=== PATIENT | female | born 1975 | race Caucasian/White ===

== ENCOUNTER 2023-01-30 08:30 | Outpatient (CLI) | payer OTHER, SELFPAY ==
--- NOTE | 2023-01-30 10:29 | W.ANESCHARGE ---
Anesthesia Charges Start Date/Time Anesthesia Start Date: 01/30/23 Anesthesia Start Time: 09:50 Stop Date/Time Anesthesia Stop Date: 01/30/23 Anesthesia Stop Time: 10:25
--- NOTE | 2023-01-30 10:57 | W.ANESCHARGE ---
Anesthesia Charges Start Date/Time Anesthesia Start Date: 01/30/23 Anesthesia Start Time: 09:50 Stop Date/Time Anesthesia Stop Date: 01/30/23 Anesthesia Stop Time: 10:25
== END 2023-01-30 08:31 | disposition home or self-care (01) ==
LOC: OP CLINIC 08:32
PROVIDERS: PCP Family Medicine; Visit Provider Internal Medicine Gastroenterology
DX: Z12.11 Encounter for screening for malignant neoplasm of colon (principal); K62.1 Rectal polyp; Q43.8 Other specified congenital malformations of intestine
CPT/HCPCS: 45385; 811; 88305; J2704

== ENCOUNTER 2024-06-19 09:40 | Inpatient (IN) | payer BC, SELFPAY ==
[2024-06-19 09:43] VITALS: BP 110/80; PULSE 86; RESP 16; TEMP 36; O2SAT 98; BMI 27.5
--- NOTE | 2024-06-19 10:00 | CRLHL7_ITS ---
For Patients: As a result of the Century Cures Act, medical imaging exams and procedure reports are released immediately into your electronic medical record. You may view this report before your referring provider. If you have questions, please contact your health care provider. INDICATION: CENTRAL ABDOMINAL PAIN, HX MULTIPLE BOWEL OBSTRUCTIONS TECHNIQUE: CT of the abdomen and pelvis was obtained with 81 mL of Isovue 370 intravenous contrast. Please note that all CT scans at this facility use dose modulation, iterative reconstruction, and/or weight-based dosing when appropriate to reduce radiation dose to as low as reasonably achievable. COMPARISON: 06/04/2019 FINDINGS: Lower thorax: Normal. Liver and biliary tree: Likely small hemangioma is again seen in the right liver. Gallbladder: Normal. Spleen: Normal. Pancreas: Normal. Adrenal glands: Normal. Kidneys and ureters: No hydronephrosis. No obstructing renal calculi. Subcentimeter hypoattenuating lesions are too small to characterize and are favored to represent cysts. Gastrointestinal tract: Decompressed distal colon. Moderate stool burden. Status post appendectomy. Dilated and fluid-filled small bowel loops measuring up to 3.5 centimeter (2/74) with transition point likely in the right lower quadrant of the abdomen. The proximal and distal small bowel appear relatively decompressed. Peritoneal cavity: Trace interloop fluid is seen. Bladder: Normal. Pelvic organs: Normal. Vasculature: Normal. Lymph nodes: Normal. Abdominal wall: 2.4 x 1.7 centimeter cystic lesion is seen along the anterolateral right perineum (2/139), which is favored to represent a [place] gland cyst. Musculoskeletal: Normal. IMPRESSION: Dilated and fluid-filled small bowel loops measuring up to 3.5 centimeter with transition point likely in the right lower quadrant of the abdomen. Findings are compatible with small-bowel obstruction. The presence of trace ascites/interloop fluid raises concern for the development of ischemia. Consider surgical consultation. Please note that all CT scans at this facility use dose modulation, iterative reconstruction, and/or weight-based dosing when appropriate to reduce radiation dose to as low as reasonably achievable. Dictated by Yehuda Hinojosa MD @ 06/19/2024 10:48:51 AM (Electronically Signed)
[2024-06-19 10:16] LABS: Basophils Absolute Auto 0.01 K/uL (0.00-0.30); Basophils Percent Auto 0.1 % (0.0-3.0); Eosinophils Absolute Auto 0.01 K/uL (0.00-0.50); Eosinophils Percent Auto 0.1 % (0.0-7.0); Hematocrit 44.8 % (33.0-51.0); Hemoglobin* 14.3 gm/dL (12.0-16.0); Immature Granulocytes Abs Auto 0.01 K/uL (0.00-0.30); Immature Granulocytes Pct Auto 0.1 %; Lymphocytes Percent Auto 10.4 % (20-44); Mean Corpuscular HGB Conc 32 gm/dL (32-36); Mean Corpuscular Hemoglobin 27 pg (26-34); Mean Corpuscular Volume 86 fL (80-100); Monocytes Percent Auto 2.6 % (0.0-11.0); Neutrophils Percent Auto 86.7 % (42.0-72.0); Platelet Count* 295 K/uL (140-440); RDW Coefficient of Variation % 13.6 % (11.5-15.5); Red Blood Count 5.22 m/uL (4.00-5.20); White Blood Count* 8.79 K/uL (4.50-11.00)
[2024-06-19 10:20] LABS: Slide Review Reflex No
[2024-06-19] MEDS: MORPHINE 4 MG/ML INJ IVP ×2 (10:20→22:18)
[2024-06-19] MEDS: ONDANSETRON 2 MG/ML inj 4 MG IVP ×2 (10:20→22:14)
[2024-06-19] MEDS: LACTATED RINGERS 1000 ML 1,000 ML IV (10:20)
--- NOTE | 2024-06-19 10:26 | ED_ITS ---
HPI - Abdominal Pain General Date Seen: 06/19/24 Chief Complaint: Abdominal Pain Stated Complaint: Abdominal pain, nausea, hx of bowel obstruction Time Seen by Provider: 06/19/24 09:41 Source: patient Mode of arrival: ambulatory Limitations: no limitations History of Present Illness HPI narrative: Patient is a 48-year-old female presenting to the emergency department for central abdominal pain. Pain started last night about 22:00 and persisted into this morning. She has not been able to eat or drink anything. Have a bowel movement this morning about 03:00. She has had multiple abdominal surgeries before including appendectomy as a child and adhesion removals for bowel obstructions. Most recent was in 2017. States she has had multiple bowel obstructions in the past and she is concerned she has a partial bowel obstruction at this time. States she has had bowel movements with previous partial bowel obstructions. As vomited about 5 times today. States this feels just like her previous bowel obstructions. Denies fevers, chills. Has not been to eat or drink today. Denies chest pain, shortness of breath. Related Data Home Medications ?Medication ?Instructions ?Recorded ?Confirmed sertraline 50 mg tablet 50 mg PO Q24H 08/19/23 06/19/24 Allergies Allergy/AdvReac Type Severity Reaction Status Date / Time milk AdvReac Verified 06/19/24 09:49 Review of Systems Status of ROS Reports: 10 or more systems reviewed and unremarkable except as noted in History and below Exam Narrative: Exam Narrative: Const: Well-nourished, Well-developed, in mild distress Eyes: PERRL, no conjunctival injection, and symmetrical lids HENT: Atraumatic external nose and ears. Moist mucous membranes. Neck: Symmetric, trachea midline, No thyromegaly. CVS: RRR, No murmurs or gallops. Peripheral pulses 2+ and equal in all extremities RESP: Unlabored respiratory effort. Clear to auscultation bilaterally. GI: Diffuse abdominal tenderness worst in the umbilical region, Nondistended, No rebound or guarding. MSK:Extremities w/o deformity, Normal Active ROM Skin: Warm, Dry. No rashes or lesions. Neuro: Normal Muscle tone, No focal neurological deficits. Psych: Awake, Alert, & Oriented x3. Appropriate mood and affect. Const: Vital Signs, click to edit/add: Vital Signs - 24 hr 06/19/24 09:43 Temperature 96.8 F L Pulse Rate [Pulse Oximeter] 86 Respiratory Rate 16 Blood Pressure [Ri ght Upper Arm] 110/80 Pulse Oximetry 98 Oxygen Delivery Me thod Room Air Course Vital Signs Vital signs: Initial Vital Signs Temperature 96.8 F L 06/19/24 09:43 Temperature Source Temporal Artery Scan 06/19/24 09:43 Pulse Rate 86 06/19/24 09:43 Respiratory Rate 16 06/19/24 09:43 Blood Pressure 110/80 06/19/24 09:43 Blood Pressure Mean 90 06/19/24 09:43 Pulse Oximetry 98 06/19/24 09:43 Oxygen Delivery Method Room Air 06/19/24 09:43 Vital Signs Temperature 96.8 F L 06/19/24 09:43 Pulse Rate 86 06/19/24 09:43 Respiratory Rate 16 06/19/24 09:43 Blood Pressure 110/80 06/19/24 09:43 Pulse Oximetry 98 06/19/24 09:43 Oxygen Delivery Method Room Air 06/19/24 09:43 Temperature 96.8 F L 06/19/24 09:43 Pulse Rate 86 06/19/24 09:43 Respiratory Rate 16 06/19/24 09:43 Blood Pressure 110/80 06/19/24 09:43 Pulse Oximetry 98 06/19/24 09:43 Oxygen Delivery Method Room Air 06/19/24 09:43 Medications Administered Medications: Discontinued Medications Generic Name Dose Route Start Last Admin Trade Name Freq PRN Reason Stop Dose Admin Lactated Ringer's 1,000 mls @ 1,000 mls/hr 06/19/24 10:00 06/19/24 10:20 Lactated Ringers 1000 Ml IV 06/19/24 10:59 1,000 mls/hr .Q1H ONE Administration Morphine Sulfate 4 mg 06/19/24 10:00 06/19/24 10:20 Morphine 4 Mg/Ml Inj IVP 06/19/24 10:01 4 mg ONCE ONE Administration Ondansetron HCl 4 mg 06/19/24 10:00 06/19/24 10:20 Ondansetron 2 Mg/Ml Inj IVP 06/19/24 10:01 4 mg ONCE ONE Administration MDM - Abdominal Pain MDM Narrative Medical decision making narrative: Patient is a 48-year-old female presenting to the emergency department for abdominal pain. She is concerned about a bowel obstruction as she has had them multiple times in the past. Has been hospitalized in [place] for them in the past according to the patient. We will do a CT scan of the abdomen pelvis with contrast to better evaluate. Will do CBC, CMP, test. Will give a L f luids for dehydration, morphine for pain and Zofran for nausea. Patient's lab work returned showing no concerning abnormalities. test is negative. CT scan was done and returned showing a small bowel obstruction. There is some concern she could be developing ischemia. I spoke to the radiologist his states this would likely be from pressure on the bowel wall and not mesenteric ischemia. Lactate was ordered and was normal. Her pain is much better at this time and appears much more comfortable. Considering the clinical exam and normal lactate I do not believe a CTA is necessary. I spoke to Dr. Sánchez reason me based on my clinical exam. Patient is accepted to the hospitalist service. Patient is agreeable to this plan. Lab Data Labs: Lab Results 06/19/24 06/19/24 06/19/24 Range/Units 10:00 10:54 11:02 WBC 8.79 (4.50-11.00) K/uL RBC 5.22 H (4.00-5.20) m/uL Hgb 14.3 (12.0-16.0) gm/dL Hct 44.8 (33.0-51.0) % MCV 86 (80-100) fL MCH 27 (26-34) pg MCHC 32 (32-36) gm/dL RDW Coeff of Ottoniel 13.6 (11.5-15.5) % Plt Count 295 (140-440) K/uL Neut % (Auto) 86.7 H (42.0-72.0) % Lymph % (Auto) 10.4 L (20-44) % Barber % (Auto) 2.6 (0.0-11.0) % Eos % (Auto) 0.1 (0.0-7.0) % Baso % (Auto) 0.1 (0.0-3.0) % Neut # (Auto) 7.60 H (1.7-7.0) K/uL Lymph # (Auto) 0.90 (0.90-2.90) K/uL Barber # (Auto) 0.20 (0.00-0.90) K/UL Eos # (Auto) 0.01 (0.00-0.50) K/uL Baso # (Auto) 0.01 (0.00-0.30) K/uL Abs Immat Gran (auto) 0.01 (0.00-0.30) K/uL Imm/Tot Granulo (auto) 0.1 % Sodium 140 (135-149) mmol/L Potassium 3.7 (3.6-5.1) mmol/L Chloride 103 (96-114) mmol/L Carbon Dioxide 30 (20-32) mmol/L Anion Gap 7 (7-15) mEq/L BUN 8 (5-24) mg/dL Creatinine 0.8 (0.5-1.5) mg/dL Estimated Creat Clear 79.07 Estimated GFR 92 ml/min Glucose 148 H (60-115) mg/dL Lactate 1.4 (0.5-1.9) mmol/L Calcium 10.6 (8.4-10.6) mg/dL Total Bilirubin 0.5 (0.1-1.5) mg/dL AST 14 (12-35) U/L ALT 13 (4-35) U/L Alkaline Phosphatase 53 (40-150) U/L Total Protein 7.9 (6.0-8.3) g/dL Albumin 4.8 (3.3-5.0) g/dL HCG, Qual Negative (Negative) Lab Acknowledgement Test Added Imaging Data CT scan abdomen pelvis: Attestation: I have reviewed the pertinent imaging results. Radiologist's impression: Dilated and fluid-filled small bowel loops measuring up to 3.5 centimeter with transition point likely in the right lower quadrant of the abdomen. Findings are compatible with small-bowel obstruction. The presence of trace ascites/interloop fluid raises concern for the development of ischemia. Consider surgical consultation. Please note that all CT scans at this facility use dose modulation, iterative reconstruction, and/or weight-based dosing when appropriate to reduce radiation dose to as low as reasonably achievable. Dictated by Yehuda Hinojosa MD @ 06/19/2024 10:48:51 AM Discharge Plan Discharge Clinical Impression: Small bowel obstruction Patient Disposition: Admitted As Observation Condition: Improved Prescriptions: No Action sertraline 50 mg tablet 50 mg PO Q24H Follow Up/Referrals: Marilia Ross MD [Primary Care Provider] -
[2024-06-19 10:39] LABS: Albumin* 4.8 g/dL (3.3-5.0); Chloride* 103 mmol/L (96-114)
[2024-06-19 10:40] LABS: HCG Qualitative Serum* Negative (Negative); Potassium* 3.7 mmol/L (3.6-5.1); Sodium* 140 mmol/L (135-149)
[2024-06-19 10:42] LABS: Anion Gap 7 mEq/L (7-15); Aspartate Amino Transferase* 14 U/L (12-35); Bilirubin Total* 0.5 mg/dL (0.1-1.5); Carbon Dioxide* 30 mmol/L (20-32); Creatinine* 0.8 mg/dL (0.5-1.5); Est. Creatinine Clearance* 79.07; Estimated Glomerular Filt Rate 92 ml/min; Total Protein* 7.9 g/dL (6.0-8.3)
[2024-06-19 10:43] LABS: Alanine Aminotransferase* 13 U/L (4-35); Alkaline Phosphatase* 53 U/L (40-150); Blood Urea Nitrogen* 8 mg/dL (5-24); Calcium* 10.6 mg/dL (8.4-10.6); Glucose* 148 mg/dL (60-115)
[2024-06-19 11:07] LABS: Lactate* 1.4 mmol/L (0.5-1.9)
--- NOTE | 2024-06-19 11:48 | P.IMHP_ITS ---
Hospitalist- H&P: HPI History of Present Illness Date Seen: 06/19/24 Chief complaint: Abdominal pain, nausea, hx of bowel obstruction Narrative: Monika James is a 48 year old female past medical history significant for MDD, s/p appendectomy, hernia repair, previous small-bowel obstructions, s/p laparotomy, colon polyp is admitted to the medical floor for further management acute, recurrent small-bowel obstruction. Patient reports onset of abdominal pain last evening around 22:00 which has persisted into this morning. Unable to tolerate orals, including solids or liquids. Last bowel movement around 3:00 a.m.. Has vomited approximately 5 times today. Reports this is similar to her previous small-bowel obstructions. Has had laparotomies in the past for adhesions, most recent in 2017. Denies recent fevers or chills. Denies chest pain or shortness of breath. In the ED, CT confirm small bowel obstruction. Concern for possible ischemia, ED provider discussed with Radiology, likely related to swelling rather than of vascular nature. No CTA recommended at this time. Labs essentially unremarkable. Lactate within normal limits. Patient received IV Zofran and morphine with improvement in pain and nausea. No further vomiting. ED provider discussed with general surgery, Dr. Sánchez. Plan for admission. No NGT at this time. Patient is a nonsmoker. Occasional alcohol use. Review of Systems Narrative: REVIEW OF SYSTEMS: Complete review of systems performed and negative unless otherwise stated in HPI or below. [facility] Medical History (Updated 06/19/24 @ 13:22 by Lizet Barcenas PA-C) H/O small bowel obstruction ?Z87.19 - Personal history of other diseases of the digestive system (ICD-10) Colon polyp ?K63.5 - Polyp of colon (ICD-10) Surgical History (Updated 06/19/24 @ 12:36 by Lizet Barcenas PA-C) History of laparotomy ?Z98.890 - Other specified postprocedural states (ICD-10) H/O hernia repair ?Z98.890 - Other specified postprocedural states (ICD-10) ?Z87.19 - Personal history of other diseases of the digestive system (ICD-10) History of appendectomy ?Z90.49 - Acquired absence of other specified parts of digestive tract (ICD- 10) Social History What is your current living situation?: I presently have a place to live Problems where you live: no known problems Problems where you live details: None In the past 12 months, utilities in danger of being shut off: no In past 12 months, lack of transportation kept you from medical appts, meetings, work, or getting things needed for daily living: no In the past 12 mos, have been you worried that your food would run out before you had money to buy more?: never true In the past 12 mos, the food you bought just didn't last and you didn't have money to buy more?: never true Non-prescribed substance use: denies use Caffeine: Yes (daily tea) How often does anyone, including family, friends and others, physically hurt you : never How often does anyone, including family, friends and others, insult or talk down to you: never How often does anyone, including family, friends and others, threaten you with harm: never How often does anyone, including family, friends and others, scream or curse at you: never Meds Home Medications and Allergies Home Medications ?Medication ?Instructions ?Recorded ?Confirmed ?Type sertraline 50 mg tablet 50 mg PO Q24H 08/19/23 06/19/24 History Allergies Allergy/AdvReac Type Severity Reaction Status Date / Time milk AdvReac Verified 06/19/24 09:49 Exam Narrative: Exam Narrative: PHYSICAL EXAM General: Pleasant, conversant, NAD HEENT: Normocephalic, atraumatic, sclera white, EOMI, oral mucosa moist Cardiovascular: RRR, S1S2. No pitting edema Pulmonary: CTA bilaterally without rhonchi, rales, expiratory wheezes. No dyspnea Abdominal: Soft, nondistended, mild tenderness greater right upper quadrant Neurological: Alert, answering questions appropriately, cranial nerves intact, no focal findings Extremities: No gross joint deformity or swelling. AROMI. Neurovascularly intact Skin: Warm, dry. Const: Vital Signs, click to edit/add: Vital Signs - 24 hr 06/19/24 09:43 Temperature 96.8 F L Pulse Rate [Pulse Oximeter] 86 Respiratory Rate 16 Blood Pressure [Ri ght Upper Arm] 110/80 Pulse Oximetry 98 Oxygen Delivery Me thod Room Air Hospitalist - H&P: Result Labs Labs: Short CBC 06/19/24 Range/Units 10:00 WBC 8.79 (4.50-11.00) K/uL Hgb 14.3 (12.0-16.0) gm/dL Hct 44.8 (33.0-51.0) % Plt Count 295 (140-440) K/uL BMP 06/19/24 10:00 Sodium 140 Potassium 3.7 Chloride 103 Carbon Dioxide 30 BUN 8 Creatinine 0.8 Glucose 148 H Calcium 10.6 Liver Function 06/19/24 Range/Units 10:00 Total Bilirubin 0.5 (0.1-1.5) mg/dL AST 14 (12-35) U/L ALT 13 (4-35) U/L Alkaline Phosphatase 53 (40-150) U/L Albumin 4.8 (3.3-5.0) g/dL Imaging CT scan - abdomen: Attestation: I have reviewed the pertinent imaging results. Radiologist's impression: CT of the abdomen and pelvis was obtained with 81 mL of Isovue 370 intravenous contrast. Please note that all CT scans at this facility use dose modulation, iterative reconstruction, and/or weight-based dosing when appropriate to reduce radiation dose to as low as reasonably achievable. COMPARISON: 06/04/2019 FINDINGS: Lower thorax: Normal. Liver and biliary tree: Likely small hemangioma is again seen in the right liver. Gallbladder: Normal. Spleen: Normal. Pancreas: Normal. Adrenal glands: Normal. Kidneys and ureters: No hydronephrosis. No obstructing renal calculi. Subcentimeter hypoattenuating lesions are too small to characterize and are favored to represent cysts. Gastrointestinal tract: Decompressed distal colon. Moderate stool burden. Status post appendectomy. Dilated and fluid-filled small bowel loops measuring up to 3.5 centimeter (2/74) with transition point likely in the right lower quadrant of the abdomen. The proximal and distal small bowel appear relatively decompressed. Peritoneal cavity: Trace interloop fluid is seen. Bladder: Normal. Pelvic organs: Normal. Vasculature: Normal. Lymph nodes: Normal. Abdominal wall: 2.4 x 1.7 centimeter cystic lesion is seen along the anterolateral right perineum (2/139), which is favored to represent a [place] gland cyst. Musculoskeletal: Normal. IMPRESSION: Dilated and fluid-filled small bowel loops measuring up to 3.5 centimeter with transition point likely in the right lower quadrant of the abdomen. Findings are compatible with small-bowel obstruction. The presence of trace ascites/interloop fluid raises concern for the development of ischemia. Consider surgical consultation. Assessment and Plan Assessment and plan (1) Small bowel obstruction: Problem comment: Acute, recurrent, history of same. S/p multiple abdominal surgeries CT shows dilated and fluid-filled small bowel loops measuring up to 3.5 centimeter with transition point likely in the right lower quadrant of the abdomen. Findings are compatible with small-bowel obstruction. The presence of trace ascites/interloop fluid raises concern for the development of ischemia. ED provider discussed with Radiology, ischemia thought to be more likely r/t swelling rather than vascular in nature General Surgery consult, Dr. Sánchez, recommendations as follows No NGT for now NPO, IVF Pain and nausea management Gastrografin challenge Status: Acute (2) MDD (major depressive disorder): Problem comment: Continue Sertraline Status: Chronic Total Time Spent Total Time Spent: Total time spent caring for the patient today was 60 minutes. This includes time spent for the visit reviewing the chart, time spent during the visit, time spent after the visit and documentation and planning in coordination of care.
--- NOTE | 2024-06-19 12:18 | PM.GSCN ---
History of Present Illness Consult details Date Seen: 06/19/24 Consult date: 06/20/24 Narrative: The patient is a 48-year-old female who presented to the emergency department today with abdominal pain. She states that yesterday she developed mid abdominal pain as well as vomiting. She has also had a dry heaves with this. She did have a bowel movements this morning and has been passing a small amount of gas. Her pain has improved since presenting to the hospital. Her history is that she underwent an appendectomy in 1984. She developed a bowel obstruction in 2001 and underwent laparotomy. I believe this was at [facility]. This was done in a more urgent fashion. She states that she was treated with an NG tube at that time. She had an incisional hernia repair with mesh in 2012 believes that that may have been at the site of her prior appendectomy. She had a small bowel obstruction requiring hospitalization here in [place] in 2015. Because of ongoing symptoms that sounded like recurring bowel obstructions, she was seen at [facility]. In 2016 underwent laparoscopic exploration and was found to have an internal hernia.. She again had a bowel obstruction in 2019. She was hospitalized again in [place] but this resolved without surgical intervention. Since then she has been doing well. This is her 1st major episode or hospitalizations since. [facility] Medical History (Updated 06/19/24 @ 13:22 by Lizet Barcenas PA-C) H/O small bowel obstruction ?Z87.19 - Personal history of other diseases of the digestive system (ICD-10) Colon polyp ?K63.5 - Polyp of colon (ICD-10) Surgical History (Updated 06/19/24 @ 12:36 by Lizet Barcenas PA-C) History of laparotomy ?Z98.890 - Other specified postprocedural states (ICD-10) H/O hernia repair ?Z98.890 - Other specified postprocedural states (ICD-10) ?Z87.19 - Personal history of other diseases of the digestive system (ICD-10) History of appendectomy ?Z90.49 - Acquired absence of other specified parts of digestive tract (ICD-10) Social History What is your current living situation?: I presently have a place to live Problems where you live: no known problems Problems where you live details: None In the past 12 months, utilities in danger of being shut off: no In past 12 months, lack of transportation kept you from medical appts, meetings, work, or getting things needed for daily living: no In the past 12 mos, have been you worried that your food would run out before you had money to buy more?: never true In the past 12 mos, the food you bought just didn't last and you didn't have money to buy more?: never true Non-prescribed substance use: denies use Caffeine: Yes (daily tea) How often does anyone, including family, friends and others, physically hurt you: never How often does anyone, including family, friends and others, insult or talk down to you: never How often does anyone, including family, friends and others, threaten you with harm: never How often does anyone, including family, friends and others, scream or curse at you: never Meds Home Medications and Allergies Home Medications ?Medication ?Instructions ?Recorded ?Confirmed ?Type sertraline 50 mg tablet 75 mg PO Q24H 08/19/23 06/19/24 History Allergies Allergy/AdvReac Type Severity Reaction Status Date / Time milk AdvReac Verified 06/19/24 09:49 Exam Narrative: Exam Narrative: General appearance: Alert, cooperative, and in no distress Eyes: PERRLA, eye lids clear, and sclera white HENT Head: Normocephalic Ears: External ears normal Pulmonary: Breathing nonlabored on room air Cardiovascular Heart: Regular rate Extremities: warm and well perfused Gastrointestinal Abdominal: Lower midline scar noted. Large right lower quadrant scar noted. No hernias noted. Abdomen is soft and nontender. Nondistended. Musculoskeletal: Extremities: Upper: Both upper extremities have normal joint range of motion and intact strength. Lower: Both lower extremities have normal joint range of motion and intact strength. Skin: Normal skin color, texture, and turgor. Neurologic: No focal deficits Psychiatric: Alert, oriented, cooperative, normal affect. Const: Vital Signs, click to edit/add: Vital Signs - 24 hr 06/19/24 09:43 Temperature 96.8 F L Pulse Rate [Pulse Oximeter] 86 Respiratory Rate 16 Blood Pressure [Ri ght Upper Arm] 110/80 Pulse Oximetry 98 Oxygen Delivery Me thod Room Air Results Labs Labs: Abnormal lab results 06/19/24 Range/Units 10:00 RBC 5.22 H (4.00-5.20) m/uL Neut % (Auto) 86.7 H (42.0-72.0) % Lymph % (Auto) 10.4 L (20-44) % Neut # (Auto) 7.60 H (1.7-7.0) K/uL Glucose 148 H (60-115) mg/dL Diabetes panel 06/19/24 Range/Units 10:00 Sodium 140 (135-149) mmol/L Potassium 3.7 (3.6-5.1) mmol/L Chloride 103 (96-114) mmol/L Carbon Dioxide 30 (20-32) mmol/L BUN 8 (5-24) mg/dL Creatinine 0.8 (0.5-1.5) mg/dL Glucose 148 H (60-115) mg/dL Calcium 10.6 (8.4-10.6) mg/dL AST 14 (12-35) U/L ALT 13 (4-35) U/L Alkaline Phosphatase 53 (40-150) U/L Total Protein 7.9 (6.0-8.3) g/dL Albumin 4.8 (3.3-5.0) g/dL Calcium panel 06/19/24 Range/Units 10:00 Calcium 10.6 (8.4-10.6) mg/dL Albumin 4.8 (3.3-5.0) g/dL Pituitary panel 06/19/24 Range/Units 10:00 Sodium 140 (135-149) mmol/L Potassium 3.7 (3.6-5.1) mmol/L Chloride 103 (96-114) mmol/L Carbon Dioxide 30 (20-32) mmol/L BUN 8 (5-24) mg/dL Creatinine 0.8 (0.5-1.5) mg/dL Glucose 148 H (60-115) mg/dL Calcium 10.6 (8.4-10.6) mg/dL Adrenal panel 06/19/24 Range/Units 10:00 Sodium 140 (135-149) mmol/L Potassium 3.7 (3.6-5.1) mmol/L Chloride 103 (96-114) mmol/L Carbon Dioxide 30 (20-32) mmol/L BUN 8 (5-24) mg/dL Creatinine 0.8 (0.5-1.5) mg/dL Glucose 148 H (60-115) mg/dL Calcium 10.6 (8.4-10.6) mg/dL Total Bilirubin 0.5 (0.1-1.5) mg/dL AST 14 (12-35) U/L ALT 13 (4-35) U/L Alkaline Phosphatase 53 (40-150) U/L Total Protein 7.9 (6.0-8.3) g/dL Albumin 4.8 (3.3-5.0) g/dL All other labs normal. Imaging Abdomen CT scan report/results: report reviewed and image reviewed Additional studies: CT scan the abdomen pelvis 06/19/2024 COMPARISON: 06/04/2019 FINDINGS: Lower thorax: Normal. Liver and biliary tree: Likely small hemangioma is again seen in the right liver. Gallbladder: Normal. Spleen: Normal. Pancreas: Normal. Adrenal glands: Normal. Kidneys and ureters: No hydronephrosis. No obstructing renal calculi. Subcentimeter hypoattenuating lesions are too small to characterize and are favored to represent cysts. Gastrointestinal tract: Decompressed distal colon. Moderate stool burden. Status post appendectomy. Dilated and fluid-filled small bowel loops measuring up to 3.5 centimeter (2/74) with transition point likely in the right lower quadrant of the abdomen. The proximal and distal small bowel appear relatively decompressed. Peritoneal cavity: Trace interloop fluid is seen. Bladder: Normal. Pelvic organs: Normal. Vasculature: Normal. Lymph nodes: Normal. Abdominal wall: 2.4 x 1.7 centimeter cystic lesion is seen along the anterolateral right perineum (2/139), which is favored to represent a Remer gland cyst. Musculoskeletal: Normal. IMPRESSION: Dilated and fluid-filled small bowel loops measuring up to 3.5 centimeter with transition point likely in the right lower quadrant of the abdomen. Findings are compatible with small-bowel obstruction. The presence of trace ascites/interloop fluid raises concern for the development of ischemia. Consider surgical consultation. Dictated by Yehuda Hinojosa MD @ 06/19/2024 10:48:51 AM Progress Note:A&P Assessment and plan (1) Small bowel obstruction: Status: Acute Assessment and Plan: The patient is a 48-year-old female with a small-bowel obstruction in the setting of prior small bowel obstructions with at least 2 surgeries for lysis of adhesions. I reviewed her imaging. There was some concern by the radiologist about possible ischemia I believe secondary to bowel edema, however white blood cell count lactate were within normal limits. The bowel does appear to be perfused throughout. Furthermore, she has minimal pain on exam. The proximal bowel is decompressed which does raise some concern for a closed loop obstruction. Additionally it does appear as she may have fecalization of the small bowel proximal to the obstruction. -I recommended Gastrografin challenge today. I explained that this may be therapeutic as well as diagnostic. This can sometimes help the obstruction open up but also if contrast has not passed into her colon by 48 hours then I would recommend exploration. -she is agreeable with this plan. I do not think she needs an NG at this time given the decompression of her stomach and overall lack of distension and pain.
[2024-06-19 12:19] VITALS: BP 107/72; PULSE 70; RESP 16; O2SAT 99; BMI 28.2
[2024-06-19 12:25] VITALS: RESP 16; O2SAT 99
[2024-06-19] MEDS: 0.9 % SODIUM CHLORIDE 1000 ml 1,000 ML 125 ML IV (13:30)
[2024-06-19 15:37] VITALS: BP 93/61; PULSE 68; RESP 16; O2SAT 93
[2024-06-19] MEDS: ACETAMINOPHEN 325 MG TABLET 1000 MG PO (15:53)
[2024-06-19] MEDS: ENOXAPARIN 30 MG/0.3ML INJ SUBCUT (18:46)
[2024-06-19 19:00] VITALS: BP 96/69; PULSE 62; RESP 16; TEMP 36.2; O2SAT 96
[2024-06-19 19:06] LABS: Appearance Urine Cloudy (Clear); Bilirubin Urine Negative (Negative); Blood Urine Trace-intact (Negative); Color Urine Yellow (Yellow); Glucose Urine Negative (Negative); Ketones Urine Negative (Negative); Leukocyte Esterase Urine Negative (Negative); Nitrite Urine Negative (Negative); Protein Urine Negative (Negative); Specific Gravity Urine 1.015 (1.000-1.030); Urobilinogen Urine 0.2 (0.2-1.0); pH Urine 8.5 (5.0-8.5)
--- NOTE | 2024-06-19 19:16 | PC.NURSE ---
End of Shift: The patient is pleasant... very fatigued this shift due to minimal sleep last night. The patient reported no abdominal pain or nausea upon arrival to the unit. No PRN medications were given this shift for nausea. PRN Tylenol was given for a mild headache..... IV fluids @ 125. up ad senait. GASTROGRAFIN CHALLENGE tomorrow AM. Ice chips are ok. NPO otherwise.Call light within reach. Yesica LOCKHART BSN
[2024-06-19 19:17] LABS: Amorphous Sediment Urine Many; Bacteria Urine Few; RBC Urine 0-2 (0-2); Squamous Epithelial Cell Urine Few (None-Few)
[2024-06-19] MEDS: NON-FORMULARY MEDICATION 90 EACH PO (22:14)
[2024-06-19 22:50] VITALS: BP 108/85; PULSE 70; RESP 16; TEMP 36.3; O2SAT 94
[2024-06-20] MEDS: 0.9 % SODIUM CHLORIDE 1000 ml 1,000 ML 125 ML IV ×4 (00:02→22:07)
[2024-06-20] MEDS: MORPHINE 4 MG/ML INJ IVP ×3 (03:06→22:08)
[2024-06-20] MEDS: ONDANSETRON 2 MG/ML inj 4 MG IVP ×2 (03:06→06:40)
[2024-06-20 03:16] VITALS: BP 127/91; PULSE 78; RESP 16; TEMP 36.4; O2SAT 94
[2024-06-20 06:51] LABS: Hematocrit 40.6 % (33.0-51.0); Hemoglobin* 12.7 gm/dL (12.0-16.0); Mean Corpuscular HGB Conc 31 gm/dL (32-36); Mean Corpuscular Hemoglobin 27 pg (26-34); Mean Corpuscular Volume 88 fL (80-100); Platelet Count* 256 K/uL (140-440); Red Blood Count 4.63 m/uL (4.00-5.20); White Blood Count* 8.64 K/uL (4.50-11.00)
[2024-06-20 07:00] VITALS: BP 108/74; PULSE 71; RESP 18; O2SAT 96
[2024-06-20 07:12] LABS: Chloride* 110 mmol/L (96-114); Potassium* 3.7 mmol/L (3.6-5.1); Sodium* 140 mmol/L (135-149)
[2024-06-20 07:14] LABS: Creatinine* 0.6 mg/dL (0.5-1.5); Est. Creatinine Clearance* 101.17; Estimated Glomerular Filt Rate 112 ml/min
[2024-06-20 07:15] LABS: Anion Gap 5 mEq/L (7-15); Blood Urea Nitrogen* 8 mg/dL (5-24); Calcium* 8.7 mg/dL (8.4-10.6); Carbon Dioxide* 25 mmol/L (20-32); Glucose* 106 mg/dL (60-115); Slide Review Reflex No
--- NOTE | 2024-06-20 07:21 | PC.NURSE ---
Pt is alert and oriented x3. Afebrile. Pt reports 6/10 pain in abdomen, pain managed with PRN medications. Pt continues to report nausea managed with PRN Zofran. Pt had one episode of emesis after an administration of PRN morphine but resolved within a few minutes.?Pt is up Ind in room, voiding and tolerating and NPO diet with sips and chips. Pt had two episodes of emesis after administration of PRN morphine, updated MD Harper and on coming RN.
--- NOTE | 2024-06-20 08:00 | CRLHL7_ITS ---
For Patients: As a result of the Century Cures Act, medical imaging exams and procedure reports are released immediately into your electronic medical record. You may view this report before your referring provider. If you have questions, please contact your health care provider. Indication: Reason For Exam: KUB following gastrografin that was administered at 0100 on 06/20/2024. Technique: X-ray abdomen/pelvis one-view Comparison: CT abdomen pelvis dated 06/19/2024. Findings/Impression: There is contrast visualized in the dependent gastric fundus and proximal gastric body. No visualized contrast in the small or large intestines. Redemonstrated dilatation of multiple small bowel loops, measuring to 3.8 centimeters in diameter, overall similar to prior allowing for differences in technique. Dictated by Hay Jaimes MD @ 06/20/2024 9:09:32 AM (Electronically Signed)
[2024-06-20] MEDS: SERTRALINE 50 MG TABLET 75 MG PO (08:22)
[2024-06-20 08:27] LABS: Lactate* 0.8 mmol/L (0.5-1.9)
--- NOTE | 2024-06-20 08:50 | P.IMPN_ITS ---
Progress Note: A&P Assessment and plan (1) Small bowel obstruction: Problem details: - Acute, recurrent, s/p multiple abdominal surgeries - CT: Dilated, fluid-filled small bowel loops up to 3.5cm, transition point likely in RLQ, c/w SBO. Trace ascites/interloop fluid raises concern for develo ping ischemia - ED provider discussed with Radiology, ischemia thought to be more likely r/t swelling rather than vascular in nature - Lactate negative x2 - Dr. Sánchez of General surgery is following, had Gastrograffin yesterday evening - no movement of gastrograffin past stomach on 06/20 imaging - Continue current plan: no NG, NPO, IVFs, manage pain and nausea Status: Acute Subjective Date Seen: 06/20/24 Interval history: Monika was admitted to the hospital yesterday for a small bowel obstruction. History of these (multiple previous abdominal surgeries). Did not require NG tube on admission. Overnight, had 2 episodes of vomiting (happened after receiving IV pain medication, so thinks this was iatrogenic). Not requiring NG at this time. Some nausea this morning, no flatus. Dr. Sánchez of General Surgery following. Exam Narrative: Exam Narrative: GEN: Alert and oriented, sitting in bed, nontoxic HEENT: EOMIs bilaterally, no scleral icterus CV: RRR Ab: Soft, mild discomfort with palpation near epigastrium Ext: wwp, no concerning edema Skin: No concerning skin lesions or rashes on exposed skin Neuro: No focal deficits Psych: Appropriate Const: Vital Signs, click to edit/add: Vital Signs - 24 hr 06/19/24 09:43 06/19/24 12:19 06/19/24 12:19 Temperature 96.8 F L Pulse Rate [Pulse Oximeter] 86 Pulse Rate [Right Pulse Oximeter] 70 Respiratory Rate 16 16 16 Blood Pressure [Ri ght Arm] 107/72 Blood Pressure [Ri ght Upper Arm] 110/80 Pulse Oximetry 98 99 99 Oxygen Delivery Me thod Room Air Room Air Room Air 06/19/24 12:25 06/19/24 15:37 06/19/24 19:00 Temperature 97.1 F L Pulse Rate [Pulse Oximeter] Pulse Rate [Right Pulse Oximeter] 68 62 Respiratory Rate 16 16 16 Blood Pressure [Ri ght Arm] 93/61 96/69 Blood Pressure [Ri ght Upper Arm] Pulse Oximetry 99 93 96 Oxygen Delivery Me thod Room Air Room Air Room Air 06/19/24 22:50 06/20/24 03:16 06/20/24 07:00 Temperature 97.4 F L 97.6 F Pulse Rate [Pulse Oximeter] Pulse Rate [Right Pulse Oximeter] 70 78 71 Respiratory Rate 16 16 18 Blood Pressure [Ri ght Arm] 108/85 127/91 H 108/74 Blood Pressure [Ri ght Upper Arm] Pulse Oximetry 94 94 96 Oxygen Delivery Me thod Room Air Room Air Room Air Labs Labs: Laboratory Results - last 24 hr 06/19/24 06/19/24 06/19/24 10:00 10:54 11:02 WBC 8.79 RBC 5.22 H Hgb 14.3 Hct 44.8 MCV 86 MCH 27 MCHC 32 RDW Coeff of Ottoniel 13.6 Plt Count 295 Neut % (Auto) 86.7 H Lymph % (Auto) 10.4 L [place] % (Auto) 2.6 Eos % (Auto) 0.1 Baso % (Auto) 0.1 Neut # (Auto) 7.60 H Lymph # (Auto) 0.90 [place] # (Auto) 0.20 Eos # (Auto) 0.01 Baso # (Auto) 0.01 Abs Immat Gran (auto) 0.01 Imm/Tot Granulo (auto) 0.1 Sodium 140 Potassium 3.7 Chloride 103 Carbon Dioxide 30 Anion Gap 7 BUN 8 Creatinine 0.8 Estimated Creat Clear 79.07 Estimated GFR 92 Glucose 148 H Lactate 1.4 Calcium 10.6 Total Bilirubin 0.5 AST 14 ALT 13 Alkaline Phosphatase 53 Total Protein 7.9 Albumin 4.8 HCG, Qual Negative Urine Color Yellow Urine Appearance Cloudy A Urine pH 8.5 Ur Specific [place] 1.015 Urine Protein Negative Urine Glucose (UA) Negative Urine Ketones Negative Urine Blood Trace-intact A Urine Nitrite Negative Urine Bilirubin Negative Urine Urobilinogen 0.2 Ur Leukocyte Esterase Negative Urine RBC 0-2 Urine WBC 2-5 Ur Squamous Epith Cells Few Amorphous Sediment Many A Urine Bacteria Few A Lab Acknowledgement Test Added 06/20/24 06/20/24 06/20/24 06:32 08:09 08:19 WBC 8.64 RBC 4.63 Hgb 12.7 Hct 40.6 MCV 88 MCH 27 MCHC 31 L RDW Coeff of Ottoniel Plt Count 256 Neut % (Auto) Lymph % (Auto) [place] % (Auto) Eos % (Auto) Baso % (Auto) Neut # (Auto) Lymph # (Auto) [place] # (Auto) Eos # (Auto) Baso # (Auto) Abs Immat Gran (auto) Imm/Tot Granulo (auto) Sodium 140 Potassium 3.7 Chloride 110 Carbon Dioxide 25 Anion Gap 5 L BUN 8 Creatinine 0.6 Estimated Creat Clear 101.17 Estimated GFR 112 Glucose 106 Lactate 0.8 Calcium 8.7 Total Bilirubin AST ALT Alkaline Phosphatase Total Protein Albumin HCG, Qual Urine Color Urine Appearance Urine pH Ur Specific [place] Urine Protein Urine Glucose (UA) Urine Ketones Urine Blood Urine Nitrite Urine Bilirubin Urine Urobilinogen Ur Leukocyte Esterase Urine RBC Urine WBC Ur Squamous Epith Cells Amorphous Sediment Urine Bacteria Lab Acknowledgement Cancelled
--- NOTE | 2024-06-20 14:04 | PM.GSPN ---
Subjective Subjective Date Seen: 06/20/24 Interval history: Early this morning, Monika had abdominal pain which was 6/10 as well as nausea and vomiting. She was given morphine and that made her pain go away. She was comfortable by mid morning. On exam later in the afternoon, she had not received any pain medication throughout the day and felt that her discomfort was minimal. She had had no further nausea or vomiting. She was passing a small amount of gas. Exam Narrative: Exam Narrative: General: No acute distress Respiratory: Breathing nonlabored on room air Abdomen: Abdomen is mildly firm but minimally distended. She does have bowel sounds. Const: Vital Signs, click to edit/add: Vital Signs - 24 hr 06/19/24 15:37 06/19/24 19:00 06/19/24 22:50 Temperature 97.1 F L 97.4 F L Pulse Rate [Right Pulse Oximeter] 68 62 70 Respiratory Rate 16 16 16 Blood Pressure [Ri ght Arm] 93/61 96/69 108/85 Pulse Oximetry 93 96 94 Oxygen Delivery Me thod Room Air Room Air Room Air 06/20/24 03:16 06/20/24 07:00 Temperature 97.6 F Pulse Rate [Right Pulse Oximeter] 78 71 Respiratory Rate 16 18 Blood Pressure [Ri ght Arm] 127/91 H 108/74 Pulse Oximetry 94 96 Oxygen Delivery Me thod Room Air Room Air Labs/Imaging Labs Labs: White blood cell count remains normal at 8.6. Lactate remains normal. Imaging Imaging: Abdominal x-ray shows small bowel obstruction. Contrast is located only in the stomach. Progress Note:A&P Assessment and plan (1) Small bowel obstruction: Status: Acute Plan The patient is a 48-year-old female with a small-bowel obstruction in the setting of prior surgeries as well as prior bowel obstructions. When I saw her in mid morning, she was feeling better but had had pain in the radiologic electronic specialist. I explained to her that given her x-ray findings and this episode of pain that I was concerned that she was not going to improve. We decided that if she had pain requiring pain medicine during the day that I would then plan on proceeding to the OR for laparotomy lysis of adhesions however, on her afternoon exam she has bowel sounds and has not had any further pain or required pain medication. We discussed that if her pain becomes worse overnight then she may need surgery or urgently, otherwise we will plan on 1 more day of observation and if not resolved then she will need a laparotomy. We will tentatively schedule this for the morning. We will order a x-ray for the morning. She is agreeable with this plan.
[2024-06-20 15:00] VITALS: BP 99/54; PULSE 72; RESP 16; TEMP 36.9; O2SAT 98
[2024-06-20] MEDS: ENOXAPARIN 30 MG/0.3ML INJ SUBCUT (19:38)
[2024-06-20 20:25] VITALS: BP 109/75; PULSE 68; RESP 16; TEMP 36.4; O2SAT 98
[2024-06-20] MEDS: SODIUM CHLORIDE 0.9 % (FLUSH) 10 ML SYRINGE 5 ML IVF (22:08)
--- NOTE | 2024-06-20 22:34 | PC.NURSE ---
Pt up independantly in room. Voiding. Minimal abominal pain. IV Morphine x1 this shift.
[2024-06-20 23:00] VITALS: BP 111/77; PULSE 64; RESP 16; TEMP 36.6; O2SAT 98
[2024-06-21 01:10] VITALS: BP 98/60; PULSE 60; RESP 14; TEMP 36.6; O2SAT 93
[2024-06-21] MEDS: 0.9 % SODIUM CHLORIDE 1000 ml 1,000 ML 125 ML IV (05:12)
[2024-06-21 06:08] LABS: Lactate* 0.5 mmol/L (0.5-1.9)
[2024-06-21 06:10] LABS: Basophils Absolute Auto 0.02 K/uL (0.00-0.30); Basophils Percent Auto 0.4 % (0.0-3.0); Eosinophils Absolute Auto 0.07 K/uL (0.00-0.50); Eosinophils Percent Auto 1.3 % (0.0-7.0); Hematocrit 32.8 % (33.0-51.0); Hemoglobin* 10.3 gm/dL (12.0-16.0); Lymphocytes Absolute Auto 1.94 K/uL (0.90-2.90); Lymphocytes Percent Auto 36.4 % (20-44); Mean Corpuscular HGB Conc 31 gm/dL (32-36); Mean Corpuscular Hemoglobin 28 pg (26-34); Mean Corpuscular Volume 88 fL (80-100); Monocytes Percent Auto 6.9 % (0.0-11.0); Neutrophils Absolute Auto 2.93 K/uL (1.7-7.0); Platelet Count* 207 K/uL (140-440); RDW Coefficient of Variation % 13.6 % (11.5-15.5); Red Blood Count 3.72 m/uL (4.00-5.20); White Blood Count* 5.33 K/uL (4.50-11.00)
[2024-06-21 06:15] LABS: Slide Review Reflex No
[2024-06-21 06:41] LABS: HCG Qualitative Serum* Negative (Negative)
[2024-06-21 06:46] LABS: Albumin* 3.2 g/dL (3.3-5.0); Chloride* 109 mmol/L (96-114); Potassium* 3.3 mmol/L (3.6-5.1); Sodium* 136 mmol/L (135-149)
[2024-06-21 06:48] LABS: Creatinine* 0.6 mg/dL (0.5-1.5); Est. Creatinine Clearance* 101.17; Estimated Glomerular Filt Rate 112 ml/min
[2024-06-21 06:49] LABS: Alanine Aminotransferase* 8 U/L (4-35); Alkaline Phosphatase* 39 U/L (40-150); Anion Gap 1 mEq/L (7-15); Aspartate Amino Transferase* 13 U/L (12-35); Bilirubin Total* 0.5 mg/dL (0.1-1.5); Blood Urea Nitrogen* 6 mg/dL (5-24); Carbon Dioxide* 26 mmol/L (20-32); Glucose* 76 mg/dL (60-115); Total Protein* 5.5 g/dL (6.0-8.3)
[2024-06-21 06:50] LABS: Calcium* 7.8 mg/dL (8.4-10.6)
[2024-06-21 07:00] VITALS: BP 98/67; PULSE 66; RESP 16; TEMP 36.8; O2SAT 95
--- NOTE | 2024-06-21 07:00 | CRLHL7_ITS ---
For Patients: As a result of the Century Cures Act, medical imaging exams and procedure reports are released immediately into your electronic medical record. You may view this report before your referring provider. If you have questions, please contact your health care provider. Indication: Gastrografin challenge Technique: Abdomen 1 view, 2 films Comparison: Abdomen 06/20/2024 Findings/Impression: Bowel: Interval transit of the previously noted oral contrast which is now at the level of the descending colon and proximal sigmoid. No dilated loops of bowel identified on today`s examination. Soft tissues: No sign of free air. No sign of soft tissue mass. No suspicious calcifications. Bones: Unremarkable for age. Dictated by Pb Guardado MD @ 06/21/2024 8:21:01 AM (Electronically Signed)
--- NOTE | 2024-06-21 07:28 | PC.NURSE ---
Pt alert and oriented x3. Afebrile. Pt reports 1/10 pain in abdomen, pain managed with cold pack. No BM overnight. Bowl sounds hyperactive. Pt is up independent in room. Pt slept intermittently throughout night.
[2024-06-21] MEDS: SERTRALINE 50 MG TABLET 75 MG PO (09:09)
--- NOTE | 2024-06-21 09:15 | PM.IMPN1 ---
Progress Note: A&P Assessment and plan (1) Small bowel obstruction: Problem details: - Acute, recurrent, s/p multiple abdominal surgeries - CT: Dilated, fluid-filled small bowel loops up to 3.5cm, transition point likely in RLQ, c/w SBO. Trace ascites/interloop fluid raises concern for developing ischemia - ED provider discussed with Radiology, ischemia thought to be more likely r/t swelling rather than vascular in nature - Lactate negative x3 - Dr. Sánchez of General surgery following, Gastrograffin on 06/19 pm - no movement of Gastrograffin on 06/20 imaging, but found to have moved through the small bowel and colon on 06/21 with resolution of dilated small bowel - advance to clear liquid diet on 06/21 Status: Acute Plan - per above - likely home as early as tomorrow if continues to tolerate po intake Subjective Date Seen: 06/21/24 Interval history: Monika was admitted to the hospital on 06/19 for a small bowel obstruction. History of these (multiple previous abdominal surgeries). Has not required NG tube since admission. Had Gastrograffin po with slow transit on imaging yesterday. Initially planned for surgery this morning. This morning, repeat XR exhibits movement of Gastrografin through small bowel and colon with resolution of dilated bowel loops. Dr. Sáncehz of General Surgery following. Monika has no concerns for the hospitalist team this morning. Exam Narrative: Exam Narrative: Sitting comfortably in bed, nontoxic Abdomen is soft and nontender Extremities are warm and well perfused Const: Vital Signs, click to edit/add: Vital Signs - 24 hr 06/20/24 15:00 06/20/24 20:25 06/20/24 23:00 Temperature 98.4 F 97.5 F L 97.8 F Pulse Rate [Right Pulse Oximeter] 72 68 64 Respiratory Rate 16 16 16 Blood Pressure [Ri ght Arm] 99/54 L 109/75 111/77 Pulse Oximetry 98 98 98 Oxygen Delivery Me thod Room Air Room Air Room Air 06/21/24 01:10 06/21/24 07:00 06/21/24 07:00 Temperature 97.9 F 98.3 F Pulse Rate [Right Pulse Oximeter] 60 66 66 Respiratory Rate 14 16 16 Blood Pressure [Ri ght Arm] 98/60 98/67 Pulse Oximetry 93 95 Oxygen Delivery Me thod Room Air Room Air Labs Labs: Laboratory Results - last 24 hr 06/21/24 05:49 WBC 5.33 RBC 3.72 L Hgb 10.3 L Hct 32.8 L MCV 88 MCH 28 MCHC 31 L RDW Coeff of Ottoniel 13.6 Plt Count 207 Neut % (Auto) 55.0 Lymph % (Auto) 36.4 [place] % (Auto) 6.9 Eos % (Auto) 1.3 Baso % (Auto) 0.4 Neut # (Auto) 2.93 Lymph # (Auto) 1.94 [place] # (Auto) 0.40 Eos # (Auto) 0.07 Baso # (Auto) 0.02 Abs Immat Gran (auto) 0.00 Imm/Tot Granulo (auto) 0.0 Sodium 136 Potassium 3.3 L Chloride 109 Carbon Dioxide 26 Anion Gap 1 L BUN 6 Creatinine 0.6 Estimated Creat Clear 101.17 Estimated GFR 112 Glucose 76 Lactate 0.5 Calcium 7.8 L Total Bilirubin 0.5 AST 13 ALT 8 Alkaline Phosphatase 39 L Total Protein 5.5 L Albumin 3.2 L HCG, Qual Negative
--- NOTE | 2024-06-21 09:18 | P.GSPN_ITS ---
Subjective Subjective Date Seen: 06/21/24 Interval history: Monika states that overall she is feeling better though she still has periumbilical discomfort. She did get pain medicine before bed last night. She has not had any nausea or vomiting. She has been passing more gas. No bowel m ovement yet. Exam Narrative: Exam Narrative: General: No acute distress CV: Regular rate Respiratory: Breathing nonlabored Abdomen: Minimally tender to palpation. No significant distension. Const: Vital Signs, click to edit/add: Vital Signs - 24 hr 06/20/24 15:00 06/20/24 20:25 06/20/24 23:00 Temperature 98.4 F 97.5 F L 97.8 F Pulse Rate [Right Pulse Oximeter] 72 68 64 Respiratory Rate 16 16 16 Blood Pressure [Ri ght Arm] 99/54 L 109/75 111/77 Pulse Oximetry 98 98 98 Oxygen Delivery Me thod Room Air Room Air Room Air 06/21/24 01:10 06/21/24 07:00 06/21/24 07:00 Temperature 97.9 F 98.3 F Pulse Rate [Right Pulse Oximeter] 60 66 66 Respiratory Rate 14 16 16 Blood Pressure [Ri ght Arm] 98/60 98/67 Pulse Oximetry 93 95 Oxygen Delivery Me thod Room Air Room Air Labs/Imaging Labs Labs: White blood cell count today is 5.3 from 8.6 though hemoglobin is also down to 10.3 from 14 on admission. Likely some dilution from IV fluids. There is no left shift noted today. Imaging Imaging: Abdominal x-ray done this morning: Indication: Gastrografin challenge Technique: Abdomen 1 view, 2 films Comparison: Abdomen 06/20/2024 Findings/Impression: Bowel: Interval transit of the previously noted oral contrast which is now at the level of the descending colon and proximal sigmoid. No dilated loops of bowel identified on today`s examination. Soft tissues: No sign of free air. No sign of soft tissue mass. No suspicious calcifications. Bones: Unremarkable for age. Dictated by Pb Guardado MD @ 06/21/2024 8:21:01 AM Progress Note:A&P Assessment and plan (1) Small bowel obstruction: Status: Acute Plan The patient is a 48-year-old female with a small-bowel obstruction that now appears to have resolved at least radiographically. She is having more flatus. I expect she will began having bowel movements today. She is still having some abdominal discomfort however. -I recommended that we advance her diet to clear liquids. If she continues to have return of bowel function and tolerates clear liquids then she can have a regular diet this evening and possibly discharge home tomorrow. -if eating results and resumption of pain or nausea then she should be made NPO; she may need additional imaging as she could have a partial small-bowel obstruction that has incompletely resolved.
[2024-06-21 11:00] VITALS: BP 106/75; PULSE 69; RESP 16; TEMP 36.4; O2SAT 97
[2024-06-21] MEDS: 0.9 % SODIUM CHLORIDE 1000 ml 1,000 ML 75 ML IV (11:48)
[2024-06-21] MEDS: POTASSIUM CHLORIDE 10 MEQ/100 ML PIGGYBACK 100 MEQ IVPB ×2 (11:48→13:00)
[2024-06-21 15:00] VITALS: BP 111/78; PULSE 61; RESP 16; TEMP 36.6; O2SAT 96
[2024-06-21] MEDS: ENOXAPARIN 30 MG/0.3ML INJ SUBCUT (17:46)
--- NOTE | 2024-06-21 18:33 | PC.NURSE ---
Shift Note : Pt friendly and cooperative, able to verbalize needs and ambulate independently. VS WNL and LS COA. Afebrile. BS active and pt reports some flatus. Abdomen mildly tender, pt states ice pack provides relief. Rates pain 3/10, and she is declining PRN medications at this time. She is tolerating clear liquids without difficulty and frequently ambulating the hallways (x4 this shift). Pt did have small-moderate incontinent loose stools x2 before making it to the BR, and is utilizing incontinence briefs at this time. Fluids discontinued, pt is currently saline locked. Pt was able to take a shower this afternoon as well. at the bedside this evening.
[2024-06-21 19:00] VITALS: BP 107/80; PULSE 61; RESP 16; TEMP 37; O2SAT 100
[2024-06-21] MEDS: SODIUM CHLORIDE 0.9 % (FLUSH) 10 ML SYRINGE 5 ML IVF (20:20)
[2024-06-21 22:01] VITALS: BP 116/80; PULSE 64; RESP 16; TEMP 36.4; O2SAT 99
[2024-06-22 03:00] VITALS: BP 96/62; PULSE 61; RESP 16; TEMP 36.6; O2SAT 95
[2024-06-22 06:30] LABS: Basophils Percent Auto 0.2 % (0.0-3.0); Eosinophils Percent Auto 1.8 % (0.0-7.0); Hematocrit 32.7 % (33.0-51.0); Hemoglobin* 10.6 gm/dL (12.0-16.0); Lymphocytes Percent Auto 35.4 % (20-44); Mean Corpuscular HGB Conc 32 gm/dL (32-36); Mean Corpuscular Hemoglobin 28 pg (26-34); Mean Corpuscular Volume 86 fL (80-100); Monocytes Percent Auto 9.4 % (0.0-11.0); Neutrophils Percent Auto 53.2 % (42.0-72.0); Platelet Count* 220 K/uL (140-440); RDW Coefficient of Variation % 13.5 % (11.5-15.5); Red Blood Count 3.82 m/uL (4.00-5.20); White Blood Count* 4.35 K/uL (4.50-11.00)
[2024-06-22 06:33] LABS: Slide Review Reflex No
[2024-06-22 06:46] LABS: Chloride* 110 mmol/L (96-114); Potassium* 3.1 mmol/L (3.6-5.1); Sodium* 139 mmol/L (135-149)
[2024-06-22 06:49] LABS: Anion Gap 3 mEq/L (7-15); Blood Urea Nitrogen* 3 mg/dL (5-24); Carbon Dioxide* 26 mmol/L (20-32); Creatinine* 0.5 mg/dL (0.5-1.5); Estimated Glomerular Filt Rate 117 ml/min; Glucose* 86 mg/dL (60-115)
[2024-06-22 06:50] LABS: Calcium* 8.1 mg/dL (8.4-10.6)
--- NOTE | 2024-06-22 07:35 | PC.NURSE ---
End of shift note ([id number]): Patient pleasant, alert and oriented. Stand by assist. Rated abdominal pain 1-2/10. Declined PRN Pain medication when offered reporting pain was tolerable. Had multiple small loose stools before 10:15pm. No further stools since that time. Reports having a sore throat. Per pt likely due to multiple emesis a couple days ago. PRN Benzocaine/Menthol Lozenge standing order entered.?
[2024-06-22 08:37] VITALS: BP 120/75; PULSE 75; RESP 16; TEMP 36.9; O2SAT 96
[2024-06-22] MEDS: SERTRALINE 50 MG TABLET 75 MG PO (08:38)
[2024-06-22] MEDS: SODIUM CHLORIDE 0.9 % (FLUSH) 10 ML SYRINGE 5 ML IVF (08:38)
[2024-06-22] MEDS: POTASSIUM BICARB 25 MEQ EFFERVESCENT TAB PO (08:38)
--- NOTE | 2024-06-22 08:41 | P.DS_ITS ---
DS: Providers Provider Time Seen by Provider: 07:52 Date Seen: 06/22/24 Date of admission: 06/19/24 13:08 Primary care physician: Marilia Ross MD Admitting Clinician: Tiny Luevano MD Attending Physician on discharge: Palmira Neri MD Date of Discharge: 06/22/24 DS: Diagnosis Discharge Diagnosis (1) Small bowel obstruction: Status: Acute Problem details: - Acute, recurrent, s/p multiple abdominal surgeries - CT: Dilated, fluid-filled small bowel loops up to 3.5cm, transition point likely in RLQ, c/w SBO. Trace ascites/interloop fluid raises concern for developing ischemia - ED provider discussed with Radiology, ischemia thought to be more likely r/t swelling rather than vascular in nature - Lactate negative x3 - Dr. Sánchez of General surgery following, Gastrograffin on 06/19 pm - no movement of Gastrograffin on 06/20 imaging, but found to have moved through the small bowel and colon on 06/21 with resolution of dilated small bowel - advance to clear liquid diet on 06/21 - advanced diet to regular, tolerated well on 06/22 (2) MDD (major depressive disorder): Status: Chronic Problem details: Continue Sertraline (3) Hypokalemia due to excessive gastrointestinal loss of potassium: Status: Acute Problem details: - oral replacement DS: Summary Hospital Course Hospital Course: Per H&P: Monika James is a 48 year old female past medical history significant for MDD, s/p appendectomy, hernia repair, previous small-bowel obstructions, s/p laparotomy, colon polyp is admitted to the medical floor for further management acute, recurrent small-bowel obstruction. Patient reports onset of abdominal pain last evening around 22:00 which has persisted into this morning. Unable to tolerate orals, including solids or liquids. Last bowel movement around 3:00 a.m.. Has vomited approximately 5 times today. Reports this is similar to her previous small-bowel obstructions. Has had laparotomies in the past for adhesions, most recent in 2017. Denies recent fevers or chills. Denies chest pain or shortness of breath. In the ED, CT confirm small bowel obstruction. Concern for possible ischemia, ED provider discussed with Radiology, likely related to swelling rather than of vascular nature. No CTA recommended at this time. Labs essentially u nremarkable. Lactate within normal limits. Patient received IV Zofran and morphine with improvement in pain and nausea. No further vomiting. ED provider discussed with general surgery, Dr. Sánchez. Plan for admission. No NGT at this time. A few episodes of vomiting on night of admission thought to be related to IV pain medication. Nausea improved and she was able to tolerate advancing diet to clears on 06/21 and regular on 06/22. Discharged home in improved condition. Time Spent with Patient Time attestation: Total time spent providing and/or coordinating discharge services: Exam Narrative: Exam Narrative: General: No acute distress. Awake, alert, oriented. No pallor. No jaundice. Ears: TMs pearly jessica bilaterally. Oropharynx: Mild erythema along the soft palate. Mucous membranes moist. Cardiovascular: Regular rate and rhythm. No murmurs, gallops, or rubs. Respiratory: Clear to auscultation bilaterally. No wheezes or crackles. Abdomen: Bowel sounds present. Soft, nondistended, mildly tender just inferior to the umbilicus, no rebound tenderness or guarding. Extremities: No pedal edema. Const: Vital Signs, click to edit/add: Vital Signs - 24 hr 06/21/24 11:00 06/21/24 15:00 06/21/24 15:00 Temperature 97.6 F 98 F Pulse Rate [Right Pulse Oximeter] 69 61 61 Respiratory Rate 16 16 16 Blood Pressure [Ri ght Arm] 106/75 111/78 Pulse Oximetry 97 96 Oxygen Delivery Me thod Room Air Room Air 06/21/24 19:00 06/21/24 22:01 06/22/24 03:00 Temperature 98.6 F 97.5 F L 97.9 F Pulse Rate [Right Pulse Oximeter] 61 64 61 Respiratory Rate 16 16 16 Blood Pressure [Ri ght Arm] 107/80 116/80 96/62 Pulse Oximetry 100 99 95 Oxygen Delivery Me thod Room Air Room Air Room Air 06/22/24 08:37 Temperature 98.5 F Pulse Rate [Right Pulse Oximeter] 75 Respiratory Rate 16 Blood Pressure [Ri ght Arm] 120/75 Pulse Oximetry 96 Oxygen Delivery Me thod Room Air DS: Data Data Completed and Pending Completed studies during hospitalization: Ordering Physician: Magdi Bryatn D.O. Date of Service: 06/19/24 Procedure(s): CT abdomen pelvis w con Accession Number(s): [id number] cc: Marilia Ross M.D.; Magdi Bryant D.O.~ For Patients: As a result of the Cures Act, medical imaging exams and procedure reports are released immediately into your electronic medical record. You may view this report before your referring provider. If you have questions, please contact your health care provider. INDICATION: CENTRAL ABDOMINAL PAIN, HX MULTIPLE BOWEL OBSTRUCTIONS TECHNIQUE: CT of the abdomen and pelvis was obtained with 81 mL of Isovue 370 intravenous contrast. Please note that all CT scans at this facility use dose modulation, iterative reconstruction, and/or weight-based dosing when appropriate to reduce radiation dose to as low as reasonably achievable. COMPARISON: 06/04/2019 FINDINGS: Lower thorax: Normal. Liver and biliary tree: Likely small hemangioma is again seen in the right liver. Gallbladder: Normal. Spleen: Normal. Pancreas: Normal. Adrenal glands: Normal. Kidneys and ureters: No hydronephrosis. No obstructing renal calculi. Subcentimeter hypoattenuating lesions are too small to characterize and are favored to represent cysts. Gastrointestinal tract: Decompressed distal colon. Moderate stool burden. Status post appendectomy. Dilated and fluid-filled small bowel loops measuring up to 3.5 centimeter (2/74) with transition point likely in the right lower quadrant of the abdomen. The proximal and distal small bowel appear relatively decompressed. Peritoneal cavity: Trace interloop fluid is seen. Bladder: Normal. Pelvic organs: Normal. Vasculature: Normal. Lymph nodes: Normal. Abdominal wall: 2.4 x 1.7 centimeter cystic lesion is seen along the anterolateral right perineum (2/139), which is favored to represent a [place] gland cyst. Musculoskeletal: Normal. IMPRESSION: Dilated and fluid-filled small bowel loops measuring up to 3.5 centimeter with transition point likely in the right lower quadrant of the abdomen. Findings are compatible with small-bowel obstruction. The presence of trace ascites/interloop fluid raises concern for the development of ischemia. Consider surgical consultation. Please note that all CT scans at this facility use dose modulation, iterative reconstruction, and/or weight-based dosing when appropriate to reduce radiation dose to as low as reasonably achievable. Dictated by Yehuda Hinojosa MD @ 06/19/2024 10:48:51 AM (Electronically Signed) Ordering Physician: Diamond Sánchez M.D. Date of Service: 06/20/24 Procedure(s): XR abdomen 1V Accession Number(s): [id number] cc: Marilia Ross M.D.; Diamond Sánchez M.D.~ For Patients: As a result of the Cures Act, medical imaging exams and procedure reports are released immediately into your electronic medical record. You may view this report before your referring provider. If you have questions, please contact your health care provider. Indication: Reason For Exam: KUB following gastrografin that was administered at 0100 on 06/20/2024. Technique: X-ray abdomen/pelvis one-view Comparison: CT abdomen pelvis dated 06/19/2024. Findings/Impression: There is contrast visualized in the dependent gastric fundus and proximal gastric body. No visualized contrast in the small or large intestines. Redemonstrated dilatation of multiple small bowel loops, measuring to 3.8 centimeters in diameter, overall similar to prior allowing for differences in technique. Dictated by Hay Jaimes MD @ 06/20/2024 9:09:32 AM (Electronically Signed) Ordering Physician: Diamond Sánchez M.D. Date of Service: 06/21/24 Procedure(s): XR abdomen 1V Accession Number(s): [id number] cc: Marilia Ross M.D.; Diamond Sánchez M.D.~ For Patients: As a result of the Cures Act, medical imaging exams and procedure reports are released immediately into your electronic medical record. You may view this report before your referring provider. If you have questions, please contact your health care provider. Indication: Gastrografin challenge Technique: Abdomen 1 view, 2 films Comparison: Abdomen 06/20/2024 Findings/Impression: Bowel: Interval transit of the previously noted oral contrast which is now at the level of the descending colon and proximal sigmoid. No dilated loops of bowel identified on today`s examination. Soft tissues: No sign of free air. No sign of soft tissue mass. No suspicious calcifications. Bones: Unremarkable for age. Dictated by Pb Guardado MD @ 06/21/2024 8:21:01 AM (Electronically Signed) Labs on day of discharge: Labs from last 24 hours 06/22/24 05:59 WBC 4.35 L RBC 3.82 L Hgb 10.6 L Hct 32.7 L MCV 86 MCH 28 MCHC 32 RDW Coeff of Ottoniel 13.5 Plt Count 220 Neut % (Auto) 53.2 Lymph % (Auto) 35.4 Stephenson % (Auto) 9.4 Eos % (Auto) 1.8 Baso % (Auto) 0.2 Neut # (Auto) 2.30 Lymph # (Auto) 1.50 Stephenson # (Auto) 0.40 Eos # (Auto) 0.10 Baso # (Auto) 0.00 Abs Immat Gran (auto) 0.00 Imm/Tot Granulo (auto) 0.0 Sodium 139 Potassium 3.1 L Chloride 110 Carbon Dioxide 26 Anion Gap 3 L BUN 3 L Creatinine 0.5 Estimated Creat Clear 121.40 Estimated GFR 117 Glucose 86 Calcium 8.1 L Magnesium Pending Discharge Plan Discharge Disposition: Home, Self-Care Date of Admission: 06/19/24 13:08 Attending Provider on Discharge: Palmira Neri Primary Care Provider: Marilia Ross Condition: Improved Anticipated Discharge Date/Time: 06/22/24 14:00 Discharge Medications: Continued sertraline 50 mg tablet 75 mg PO Q24H Discharge Orders: Discharge Order (Routine); Ordered 06/22/24 Ordered By: Palmira Neri Activity Level: No Restrictions Discharge Diet: Regular Follow Up Appointments: Marilia Ross MD [Primary Care Provider] - Forms: [employer] Info Instructions
[2024-06-22] MEDS: OMEPRAZOLE 20 MG CAPSULE DR PO (09:02)
[2024-06-22 09:53] LABS: PCR FLU A Negative PCR FLU A (Negative); PCR FLU B Negative PCR FLU B (Negative); PCR RSV Negative PCR RSV (Negative); SARS PCR* Negative SARS-CoV-2 (Negative)
--- NOTE | 2024-06-22 13:40 | PC.NURSE ---
Discharge: The patient discharged home with her this afternoon. She is tolerating a regular bland diet. The patient reports loose stills intermittently today still. Educated the patient on follow up to her primary care physician regarding on loose stools if they persist for greater than a few days after resuming a regular diet. All discharge information was reviewed. Ambulated off the unit. Yesica LOCKHART, BSN
== END 2024-06-22 13:17 | disposition home or self-care (01) | DRG 247 ==
LOC: ED 11:30 → MEDSURG 11:48
PROVIDERS: Family Medicine; Admitting Provider Physician Assistant; Emergency Provider Student in an Organized Health Care Education/Training Program; PCP Family Medicine; Visit Provider Family Medicine
DX: K56.699 Other intestinal obstruction unspecified as to partial versus complete obstruction (principal); R18.8 Other ascites; E87.6 Hypokalemia; F32.9 Major depressive disorder, single episode, unspecified; Z90.49 Acquired absence of other specified parts of digestive tract; Z98.890 Other specified postprocedural states; Z87.19 Personal history of other diseases of the digestive system
CPT/HCPCS: 36415; 74018; 74177; 80048; 80053; 81001; 83605; 83615; 83735; 84703; 85025; 85027; 87086; 87631; 99283; 99285; A9270; J1650; J2250; J2270; J2405; J3010; J3480; J7030; J7120; Q9967